=== PATIENT | male | born 1990 | race Caucasian/White ===

== ENCOUNTER 2017-03-02 20:46 | Emergency (ER) | payer OTHER ==
[2017-03-02 20:56] VITALS: BP 152/93; PULSE 77; TEMP 98.7; BMI 32.1
[2017-03-02] MEDS ORDERED: DIPHTH,PERTUSS(ACELL),TET 0.5 ML DISP.SYRIN IM ONE (21:27)
[2017-03-02] MEDS ORDERED: AMOX TR/POT CLAV 875MG/125MG TABLETS (FP) PO ONE (21:34)
[2017-03-02] MEDS ORDERED: AMOX TR/POT CLAV 875MG/125MG TABLETS (FP) ONE ×2 (21:40→21:41)
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
== END 2017-03-02 22:48 | disposition home or self-care (01) ==
LOC: JERFT 20:46
PROC: 0HQGXZZ Repair Left Hand Skin, External Approach (ICD-10-PCS; principal; 2017-03-02)
PROC: 3E0234Z Introduction of Serum, Toxoid and Vaccine into Muscle, Percutaneous Approach (ICD-10-PCS; 2017-03-02)
DX: S61.211A Laceration without foreign body of left index finger without damage to nail, initial encounter (principal); Y04.0XXA Assault by unarmed brawl or fight, initial encounter; Y93.89 Activity, other specified; Y92.9 Unspecified place or not applicable
CPT/HCPCS: 73130-TC-LT; 90715; 99281-25

== ENCOUNTER 2017-03-04 13:14 | Emergency (ER) | payer OTHER ==
[2017-03-04 13:19] VITALS: BP 148/91; PULSE 66; TEMP 98; BMI 32.1
--- NOTE | 2017-03-04 13:52 | PDOC ---
*Physical Exam - Vital Signs Last Vital Signs Temp Pulse Resp BP Pulse Ox 98 F 66 18 148/91 99 03/04/17 13:17 03/04/17 13:17 03/04/17 13:17 03/04/17 13:17 03/04/17 13:17 Medical Decision Making - Medical Decision Making 03/04/17 13:51 Pt seen by Midlevel Provider under my direct supervision Pt interviewed and examined Ancillary studies reviewed I agree with plan as outlined by Midlevel Provider
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
== END 2017-03-04 14:54 | disposition home or self-care (01) ==
LOC: JER 13:14
DX: R19.7 Diarrhea, unspecified (principal)
CPT/HCPCS: 99282-25

== ENCOUNTER 2018-09-05 09:35 | Emergency (ER) | payer OTHER ==
[2018-09-05 09:41] VITALS: BP 149/96; PULSE 84; TEMP 98.4; BMI 28.7
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
[2018-09-05 10:51] LABS: URINE APPEARANCE CLEAR; URINE BILIRUBIN NEGATIVE (NEGATIVE); URINE COLOR YELLOW; URINE GLUCOSE (UA) NEGATIVE (NEGATIVE); URINE KETONE 1+ (NEGATIVE); URINE LEUK ESTERASE NEGATIVE (NEGATIVE); URINE NITRITE NEGATIVE (NEGATIVE); URINE PROTEIN NEGATIVE (NEGATIVE)
== END 2018-09-05 10:35 | disposition home or self-care (01) ==
LOC: JERFT 09:35
DX: R23.8 Other skin changes (principal); N48.89 Other specified disorders of penis
CPT/HCPCS: 36415; 81003; 87086; 87491; 87591; 99281-25

== ENCOUNTER 2024-06-07 19:13 | Emergency (ER) | payer OTHER ==
[2024-06-07 19:54] VITALS: BMI 30.7
[2024-06-07 20:09] VITALS: BP 144/102; PULSE 73; RESP 18; TEMP 98.6
== END 2024-06-07 22:54 | disposition home or self-care (01) ==
LOC: FER 19:13
DX: S09.90XA Unspecified injury of head, initial encounter (principal); R42 Dizziness and giddiness; R51.9 Headache, unspecified; W22.8XXA Striking against or struck by other objects, initial encounter
CPT/HCPCS: 70450-TC; 99284-25

== ENCOUNTER 2024-10-19 20:54 | Emergency (ER) | payer OTHER ==
[2024-10-19 20:59] VITALS: BP 113/76; PULSE 62; RESP 18; TEMP 98.3; BMI 33.9
[2024-10-19] MEDS ORDERED: DIPHTH,PERTUSS(ACELL),TET 0.5 ML DISP.SYRIN IM ONE (22:00)
[2024-10-19] MEDS: DIPHTH,PERTUSS(ACELL),TET 0.5 ML DISP.SYRIN IM ONE (22:04)
== END 2024-10-19 22:24 | disposition home or self-care (01) ==
LOC: JERFT 20:54
PROC: 0HQFXZZ Repair Right Hand Skin, External Approach (ICD-10-PCS; principal; 2024-10-19)
PROC: 3E0234Z Introduction of Serum, Toxoid and Vaccine into Muscle, Percutaneous Approach (ICD-10-PCS; 2024-10-19)
DX: S61.411A Laceration without foreign body of right hand, initial encounter (principal); Z23 Encounter for immunization; W26.8XXA Contact with other sharp object(s), not elsewhere classified, initial encounter
CPT/HCPCS: 12001-25; 90471; 90715; 99284-25